=== PATIENT | male | born 1945 | race Caucasian/White ===

== ENCOUNTER 2018-01-31 06:11 | Day surgery (SDC) | payer OTHER ==
[2018-01-31] MEDS: BUPIVACAINE 0.25%/EPI (SDV) 30 ML INJ INJ
[2018-01-31] MEDS ORDERED: PROPOFOL 200 MG INJ (07:00)
[2018-01-31] MEDS ORDERED: BUPIVACAINE 0.25%/EPI (MDV) 50 ML VIAL INJ (10:48)
[2018-01-31] MEDS ORDERED: LIDOCAINE 2% (SDV) 5 ML INJ (10:59)
[2018-01-31] MEDS ORDERED: ROCURONIUM 50 MG INJ (10:59)
[2018-01-31] MEDS ORDERED: MIDAZOLAM 1 MG/ML 2 ML INJ (11:00)
[2018-01-31] MEDS ORDERED: OXYCODONE/ACETAMINOPHEN (5/325) TAB PO ×2 (11:00→12:00)
[2018-01-31] MEDS ORDERED: DIPHENHYDRAMINE 50 MG INJ IV (11:00)
[2018-01-31] MEDS ORDERED: FENTAnyl 50 MCG/ML VIAL (11:00)
[2018-01-31] MEDS ORDERED: PROPOFOL 20 ML (11:00)
[2018-01-31] MEDS ORDERED: SUCCINYLCHOLINE CHLORIDE 100 MG/5 ML SYG IV (11:00)
[2018-01-31] MEDS ORDERED: FENTAnyl 50 MCG/ML VIAL IV ×3 (11:00)
[2018-01-31] MEDS ORDERED: hydrALAzine 20 MG INJ IV (11:00)
[2018-01-31] MEDS ORDERED: HYDROmorphONE 1 MG/5 ML IV SYRINGE IV ×3 (11:00)
[2018-01-31] MEDS ORDERED: LABETALOL HCL 20MG INJ IV (11:00)
[2018-01-31] MEDS ORDERED: PROCHLORPERAZINE 10 MG INJ IV (11:00)
[2018-01-31] MEDS ORDERED: CEFAZOLIN 1 GM INJ (11:08)
[2018-01-31] MEDS ORDERED: ONDANSETRON 4 MG INJ (11:08)
[2018-01-31] MEDS ORDERED: DEXAMETHASONE 4 MG/ML 1 ML INJ (11:08)
[2018-01-31] MEDS ORDERED: FAMOTIDINE 20 MG INJ (11:09)
[2018-01-31] MEDS ORDERED: SUGAMMADEX SODIUM 200 MG/2 ML VIAL IV ×2 (11:50→11:51)
[2018-01-31] MEDS ORDERED: KETOROLAC 30 MG INJ (11:50)
[2018-01-31] MEDS ORDERED: ONDANSETRON 4 MG INJ IV (12:00)
[2018-01-31] MEDS ORDERED: morphine 2 MG INJ IV (12:00)
[2018-01-31] MEDS: MEPERIDINE 25 MG INJ IV (12:22)
[2018-01-31] MEDS: ONDANSETRON 4 MG INJ IV (12:22)
[2018-01-31] MEDS: OXYCODONE/ACETAMINOPHEN (5/325) TAB PO (13:23)
== END 2018-01-31 13:52 | disposition home or self-care (01) ==
LOC: SDS 06:11
DX: K40.90 Unilateral inguinal hernia, without obstruction or gangrene, not specified as recurrent (principal); I10 Essential (primary) hypertension; E78.5 Hyperlipidemia, unspecified
CPT/HCPCS: 49505